=== PATIENT | male | born 1950 | race Asian ===

== ENCOUNTER 2024-03-16 19:00 | Emergency (ER) | payer OTHER ==
[~2024-03-16] VITALS: Ht 165.1 cm; Wt 73.9 kg
[2024-03-16 19:07] VITALS: BP 156/86; PULSE 68; RESP 16; TEMP 98.8; O2SAT 96
[2024-03-16] MEDS ORDERED: FLUORESCEIN OPTH STRIP 1 MG OP ONE (19:45)
== END 2024-03-16 22:02 | disposition home or self-care (01) ==
LOC: MED 19:00
DX: R51.9 Headache, unspecified (principal); H53.8 Other visual disturbances; E11.9 Type 2 diabetes mellitus without complications; I10 Essential (primary) hypertension
CPT/HCPCS: 70450; 99284